=== PATIENT | female | born 1980 | race Caucasian/White ===

== ENCOUNTER 2018-03-24 12:26 | Emergency (ER) | payer OTHER ==
[~2018-03-24] VITALS: Ht 167.6 cm; Wt 72.6 kg
[~2018-03-24 12:26] MED LIST: ABILIFY10 MG PO; ATIVAN1 MG PO; CELEXA40 MG PO; CITALOPRAM HYDR40 MG PO; GABAPENTIN400 MG PO; K-DUR 1010 MEQ PO; LASIX40 MG PO; LORAZEPAM0.5 MG PO; NITROFURANTOIN100 M2 PO; PRENATAL1 TA7 PO; Zofran4 MG PO
[2018-03-24 12:34] VITALS: BP 133/76
[2018-03-24] MEDS ORDERED: SUBOXONE 8 MG-1 EACH SL ×2 (12:47→12:48)
== END 2018-03-24 14:25 | disposition home or self-care (01) ==
LOC: ED 12:26
DX: S39.012A Strain of muscle, fascia and tendon of lower back, initial encounter (principal); S16.1XXA Strain of muscle, fascia and tendon at neck level, initial encounter; F17.200 Nicotine dependence, unspecified, uncomplicated; Z88.5 Allergy status to narcotic agent; Z79.899 Other long term (current) drug therapy; Z90.49 Acquired absence of other specified parts of digestive tract; V43.52XA Car driver injured in collision with other type car in traffic accident, initial encounter; Y93.I9 Activity, other involving external motion; Y92.488 Other paved roadways as the place of occurrence of the external cause; Y99.8 Other external cause status

== ENCOUNTER 2018-04-24 15:10 | Emergency (ER) | payer OTHER ==
[~2018-04-24] VITALS: Ht 165.1 cm; Wt 70.8 kg
[~2018-04-24 15:10] MED LIST changes: +SUBOXONE 8 MG-1 EACH SL
[2018-04-24 15:11] VITALS: BP 116/49
[2018-04-24 15:30] LABS: BILIRUBIN NEGATIVE (NEGATIVE); BLOOD 3+ (NEGATIVE); CLARITY CLOUDY (CLEAR); COLOR YELLOW (YELLOW); GLUCOSE NEGATIVE (NEGATIVE); KETONE TRACE (NEGATIVE); LEUKO ESTERASE 2+ (NEGATIVE); NITRITE NEGATIVE (NEGATIVE); SPECIFIC GRAVITY 1.025 (1.005-1.030)
[2018-04-24 15:46] LABS: BACTERIA 2+; EPITHELIAL CELLS 0-2; MUCOUS TRACE; RBC TNTC rbc/hpf (0-2); WBC TNTC wbc/hpf (0-5)
[2018-04-24] MEDS ORDERED: PYRIDIUM200 M1 PO (15:52)
[2018-04-24] MEDS ORDERED: SEPTDS PO (15:52)
[2018-04-24] MEDS ORDERED: ZOFRAN4 MG PO (15:52)
== END 2018-04-24 15:55 | disposition home or self-care (01) ==
LOC: ED 15:10
PROVIDERS: Nurse Practitioner Family
DX: N39.0 Urinary tract infection, site not specified (principal); Z88.6 Allergy status to analgesic agent; Z79.899 Other long term (current) drug therapy